=== PATIENT | female | born 2005 | race African-American/Black ===

== ENCOUNTER 2025-05-04 00:37 | Emergency (ER) | payer SELFPAY ==
[~2025-05-04] VITALS: Ht 170.2 cm; Wt 65.2 kg
[2025-05-04 00:40] VITALS: BP 105/56; TEMP 97.8; O2SAT 98
[2025-05-04] MEDS ORDERED: ONDA-282 PO (11:47)
== END 2025-05-04 02:00 | disposition left against medical advice (07) ==
LOC: M ED 00:37
DX: Z53.21 Procedure and treatment not carried out due to patient leaving prior to being seen by health care provider (principal)

== ENCOUNTER 2025-05-04 02:31 | Emergency (ER) | payer OTHER, SELFPAY ==
[~2025-05-04] VITALS: Ht 170.2 cm; Wt 58.3 kg
[2025-05-04 03:29] LABS: BASO # 0.0 10^3/uL (0.0-0.2); BASO % 0.2 % (0.0-1.0); EOS # 0.0 10^3/uL (0.0-0.5); EOS % 0.2 % (0.0-3.0); LYMPH # 1.1 10^3/uL (1.5-5.0); LYMPH % 22.5 % (24.0-44.0); MONO # 0.2 10^3/uL (0.0-0.8); MONO % 3.2 % (2.0-8.0); NEUTROPHILS # 3.5 10^3/uL (1.5-8.5); NEUTROPHILS % 73.7 % (36.0-66.0); PLATELET COUNT, AUTOMATED 170 10^3/uL (150-450)
[2025-05-04 04:28] LABS: ALT/SGPT 13 U/L (7.0-40); AST/SGOT 18 U/L (<34); CALCIUM LEVEL 9.4 MG/DL (8.5-10.1); CARBON DIOXIDE LEVEL 26 MMOL/L (20-31); CHLORIDE LEVEL 107 MMOL/L (98-107); CREATININE FOR GFR 0.64 MG/DL (0.55-1.30); GLOMERULAR FILTRATION RATE > 90.0 (>60); POTASSIUM SERUM 4.2 MMOL/L (3.5-5.1); SODIUM LEVEL 142 MMOL/L (136-145)
[2025-05-04 05:11] LABS: HCG, SERUM QUALITATIVE NEGATIVE (NEGATIVE)
[2025-05-04 05:37] LABS: KETONE, URINE AUTO RFX 1+ mg/dL (NEGATIVE); LEUKOCYTE ESTERASE UR AUTO RFX NEGATIVE (NEGATIVE); MUCUS, URINE RFX LARGE (NEGATIVE); NITRITE, URINE AUTO RFX NEGATIVE (NEGATIVE); RBC, URINE AUTO RFX 0 /HPF (0-3); SQUAM EPITHELIAL CELL UR AURFX 8 /HPF (0-6); WBC, URINE AUTO RFX 4 /HPF (0-3)
[2025-05-04] MEDS ORDERED: ISOVUE-370 76% 100 ML VIAL As Ordered ONE (07:49)
[2025-05-04] MEDS: NS (Normal Saline) 0.9% 1,000 ML IV ONE (07:54)
[2025-05-04] MEDS: ONDANSETRON 4MG/2ML VIAL IV ONE (07:54)
[2025-05-04] MEDS: KETOROLAC 30 MG/ML 1 ML VIAL IV ONE (07:54)
[2025-05-04 09:42] LABS: KETONE, URINE AUTO RFX 1+ mg/dL (NEGATIVE); LEUKOCYTE ESTERASE UR AUTO RFX NEGATIVE (NEGATIVE); MUCUS, URINE RFX SMALL (NEGATIVE); NITRITE, URINE AUTO RFX NEGATIVE (NEGATIVE); RBC, URINE AUTO RFX 1 /HPF (0-3); SQUAM EPITHELIAL CELL UR AURFX 9 /HPF (0-6); WBC, URINE AUTO RFX 0 /HPF (0-3)
[2025-05-04] MEDS ORDERED: ONDA-282 PO (11:47)
[2025-05-04 11:56] VITALS: BP 117/71; TEMP 98.5; O2SAT 97
== END 2025-05-04 12:00 | disposition home or self-care (01) ==
LOC: EDBD 02:31 → M ED 02:31
DX: N83.00 Follicular cyst of ovary, unspecified side (principal); R11.16 Cannabis hyperemesis syndrome; J45.909 Unspecified asthma, uncomplicated; F17.290 Nicotine dependence, other tobacco product, uncomplicated; F12.10 Cannabis abuse, uncomplicated
CPT/HCPCS: 74177; 76856; 80048; 80076; 81001; 83690; 84703; 85025; 93041; 99284; J1885; J2405; Q9967